=== PATIENT | female | born 1995 | race African-American/Black ===

== ENCOUNTER 2016-03-12 17:48 | Emergency (ER) | payer OTHER ==
[2016-03-12 17:56] VITALS: BP 118/77
== END 2016-03-12 18:30 | disposition left against medical advice (07) ==
LOC: ER 17:48
DX: Z53.21 Procedure and treatment not carried out due to patient leaving prior to being seen by health care provider (principal)

== ENCOUNTER 2016-04-03 18:03 | Emergency (ER) | payer OTHER ==
[2016-04-03 18:38] LABS: Urine Appearance Clear; Urine Bacteria 2+; Urine Bilirubin Negative (NEGATIVE); Urine Blood Negative /ul (NEGATIVE); Urine Color Dark Yellow; Urine Ketone Negative (NEGATIVE); Urine Nitrite Negative (NEGATIVE); Urine Protein Negative (NEGATIVE); Urine RBC TRACE /hpf (0-5); Urine Specific Gravity 1.025 SP.GR. (1.005-1.010); Urine Urobilinogen Normal (NORMAL); Urine WBC None Seen /hpf (0-5)
--- NOTE | 2016-04-03 18:50 | ERNOTE ---
Abdominal HPI - Narrative Date of Service: 04/03/16 - General Chief Complaint: Abdominal Pain Time Seen by Provider: 04/03/16 18:23 Source: patient, RN notes reviewed Exam Limitations: no limitations - Immun/Allergies/Home Medications Immunizatons: IMMUNIZATION HX Immunizations Up to Date No History of Influenza Vaccine No Hx Pneumococcal Vaccination No Allergies/Adverse Reactions: Allergies No Known Allergies Allergy (Verified 09/21/15 12:52) Home Medications: HOME MEDICATIONS NK [No Home Medication] 04/03/16 [Last Taken Unknown] - History of Present Illness Narrative: 21 y/o female ambulatory to the ED for lower abdominal pain that has been occurring for over a month. Her LMP was 02/22/16 and she began having pain when it ended on 02/28/16. She has had 2 positive home tests. Her pain worsens when she eats. She reports nausea but no vomiting, diarrhea or constipation. She has not been taking anything for pain. Prior Abdominal Problems: Present: none Prior Treatment: Absent: recently seen Review of Systems - Review of Systems Constitutional: Absent: recent illness, fever, chills EYE: Present: no symptoms reported ENT: Present: no symptoms reported Respiratory: Absent: shortness of breath, cough Cardiology: Absent: chest pain, palpitations, syncope Gastrointestinal/Abdominal: Present: See HPI Genitourinary: Absent: frequency, dysuria, hematuria Musculoskeletal: Absent: back pain, joint pain Skin: Absent: rash, lesions Neurological: Absent: headache, dizziness/light-headedness Endocrine: Present: no symptoms reported Hematologic/Lymphatic: Present: no symptoms reported Psych: Present: no symptoms reported - Patient's Past Medical History Patient History - Medical: No pertinent hx, Other Patient History - Cardiac/Respiratory: No pertinent hx Patient History - Cancer: No Hx of Cancer Patient History - Surgical Procedures: , Other - Elective Patient History - Other: None LMP (females 10-50): - LMP (Calendar): 02/22/16 - Family History Mother Family History - Cardiac/Respiratory: Hypertension - Social History Living Situations: alone Abuse History: No History of abuse Psych History: No pertinent hx Does anyone smoke in the home?: Yes Smoking Status: Former smoker Have you smoked in the past 12 months: Yes Smoking Stop Date: 03/27/16 Alcohol Use: rarely Drug Use: none - Immunizations Immunizations Up to Date: No Hx Pneumococcal Vaccination: No History of Influenza Vaccine: No Physical Exam - Physical Exam General Appearance: Present: wd/wn, alert, no apparent distress, anxious Neck: Present: normal inspection, nontender, supple, full range of motion Respiratory: Present: no respiratory distress, normal breath sounds, no accessory muscle use, lungs clear Cardiovascular/Chest: Present: regular rate, rhythm, no murmur, normal peripheral pulses Gastrointestinal/Abdominal: Present: normal bowel sounds, nondistended, soft, tenderness - throughout lower abdomen Back Exam: Present: normal inspection, no CVA tenderness Neurological Exam: Present: alert, oriented, normal mood/affect, no motor/ sensory deficits Skin Exam: Present: normal color, warm/dry ED Progress - Results and Orders Patient's Lab Results:: I have reviewed the patient's lab results. - Vital Signs Patient's Vital Signs:: I have reviewed the patient's vital signs. Vital Signs: Vital Signs 04/03/16 18:07 Temperature 35.8 C L Pulse Rate 84 Respiratory 16 Rate Blood Pressure 123/70 O2 Sat by Pulse 100 Oximetry - CT/Ultrasound CT/Ultrasound Narrative: Technique: US OB Limited 1st Trimester Findings: The uterus is identified. It is normal in size and location. It is normal in echogenicity. It demonstrates a gestational sac within the endometrium. Gestational sac measures 1.38 cm compatible with an estimated gestational age of 5 weeks 4 days. Yolk sac is identified. A pole was identified. Primera-rump length measures 5.2 mm which corresponds to an estimated gestational age of 6 weeks 2 days. Heart tones are identified and measure to be 127 bpm. Both ovaries are normal in size, echogenicity and vascularity. No adnexal masses. Minimal fluid within the cul-de-sac likely physiologic. Also noted was a small subchorionic hemorrhage. IMPRESSION: 1. Single viable intrauterine gestation without evidence for ectopic . Electronically signed by Dominic Prince M.D.. - Progress/Reassessment Chief Complaint: Abdominal Pain Progress:: Unchanged Plan - Plan Plan: Discussed US results, patient instructed to establish with an OB for new patient appt. Pain is likely discomfort of early . Discussed taking Tylenol for pain and making sure she is drinking enough water. Departure - Departure Clinical Impression: First trimester Disposition: Home Follow Up Needed Condition: Good Instructions: First Trimester of Additional Instructions: [facility] appointment Referrals: Ayana Nieto MD [Staff Physician] -
[2016-04-03 21:08] VITALS: BP 118/68
== END 2016-04-03 20:44 | disposition home or self-care (01) ==
LOC: ER 18:03
DX: O26.891 Other specified pregnancy related conditions, first trimester (principal); Z3A.01 Less than 8 weeks gestation of pregnancy; R10.9 Unspecified abdominal pain; Z87.891 Personal history of nicotine dependence

== ENCOUNTER 2016-07-30 04:00 | Emergency (ER) | payer OTHER ==
--- NOTE | 2016-07-30 04:29 | ERNOTE ---
Headache ER HPI - Narrative Date of Service: 07/30/16 - General Presenting Symptoms: headache Time Seen by Provider: 07/30/16 04:26 Source: patient - Immun/Allergies/Home Medications Immunizations: IMMUNIZATION HX Immunizations Up to Date Yes History of Influenza Vaccine No Hx Pneumococcal Vaccination No Allergies/Adverse Reactions: Allergies No Known Allergies Allergy (Verified 07/30/16 04:06) Home Medications: HOME MEDICATIONS NK [No Home Medication] 04/03/16 [Last Taken Unknown] - History of Present Illness Narrative: 5 MONTH PT WHO STATES SHE HAS HAD H.A. SINCE 2100 AND JUST TOOK APAP 10 MINS BEFORE CALLING EMS TO BRING HER HERE. NO HX OF TRAUMA. STATES H.A. IS THROBBING TO LEFT FRONTAL AREA. SOME NAUSEA . NO VOMITING. SHE DENIES ANY MED EXCEPT FOR VITS. DENIES JAMISON HX. GENERALLY WELL. IS WITH [facility] WITHOUT ANY COMPLICATIONS. C/O PHOTOPHOBIA Review of Systems - Review of Systems Constitutional: Present: See HPI EYE: Present: see HPI ENT: Present: no symptoms reported Respiratory: Present: no symptoms reported Cardiology: Present: no symptoms reported Gastrointestinal/Abdominal: Present: no symptoms reported Genitourinary: Present: no symptoms reported Musculoskeletal: Present: no symptoms reported Skin: Present: no symptoms reported Neurological: Present: See HPI, headache Hematologic/Lymphatic: Present: no symptoms reported Psych: Present: no symptoms reported All Other Systems: All systems neg except as marked - Patient's Past Medical History Patient History - Medical: No pertinent hx, Other Patient History - Cardiac/Respiratory: No pertinent hx Patient History - Cancer: No Hx of Cancer Patient History - Surgical Procedures: , Other, Orthopedic Patient History - Other: None LMP (females 10-50): 01/2016 LMP (Calendar): 02/22/16 - Family History Mother Family History - Cardiac/Respiratory: Hypertension - Social History Living Situations: alone Abuse History: No History of abuse Psych History: No pertinent hx Does anyone smoke in the home?: Yes Smoking Status: Former smoker Have you smoked in the past 12 months: No Do you dip or chew tobacco: No Alcohol Use: none Drug Use: none - Immunizations Immunizations Up to Date: Yes Hx Pneumococcal Vaccination: No History of Influenza Vaccine: No Physical Exam - Physical Exam General Appearance: Present: wd/wn, alert, moderate distress Eye Exam: Normal inspection: bilateral, PERRL: bilateral, EOMI: bilateral Ears, Nose, Throat: Present: normal ENT inspection, normal except - - RED NASAL MUCOSA BUT NOT CONGESTED. Neck: Present: normal inspection, nontender, supple, full range of motion Respiratory: Present: no respiratory distress, normal breath sounds, no accessory muscle use, chest nontender, lungs clear Cardiovascular/Chest: Present: regular rate, rhythm, no murmur, normal peripheral pulses Gastrointestinal/Abdominal: Present: normal bowel sounds, nontender, distended - GRAVID UTERUS , NON TENDER , TO 5 CM ABOVE UMBILICUS. 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 Absent: facial droop, motor weakness, disoriented to person, disoriented to time, disoriented to place, disoriented to situation DTR: N=norm/NB=norm/brisk/A=abs/DD=dull/dimin/HC=hyperactive: Tricep (R): Normal , Tricep (L): Normal, Knee (R): Normal, Knee (L): Normal Skin Exam: Present: normal color, warm/dry ED Progress - Vital Signs Vital Signs: FHT = 150-160 Vital Signs 07/30/16 07/30/16 04:01 04:15 Temperature 36.6 C Pulse Rate 91 83 Respiratory 18 16 Rate Blood Pressure 93/70 111/72 O2 Sat by Pulse 100 99 Oximetry - Progress/Reassessment Chief Complaint: Headache Progress:: Improved - Transfer of Care Expected Disposition: Discharge Departure Clinical Impression: Headache Qualifiers: Headache type: unspecified Headache chronicity pattern: acute headache Intractability: intractable Qualified Code(s): R51 - Headache - Departure Disposition: Home Follow Up Needed Condition: Fair Instructions: General Headache Without Cause Additional Instructions: REST . OK TO TAKE TYLENOL 650 MG EVERY 6 HOURS IF NEEDED FOR THE HEADACHE IF NOT COMPLETELY GONE OR RETURNS RECHECK WITH YOUR OB OR PRIMARY CARE DOCTOR.
[2016-07-30] MEDS ORDERED: diphenhydrAMINE HCL 50 MG/ML VIAL IM ONE (04:48)
[2016-07-30] MEDS ORDERED: NALBUPHINE HCL 20 MG/ML AMPUL IM ONE (04:50)
[2016-07-30] MEDS ORDERED: diphenhydrAMINE HCL 50 MG/ML VIAL ONE (04:55)
[2016-07-30] MEDS ORDERED: NALBUPHINE HCL 20 MG/ML AMPUL ONE (04:55)
[2016-07-30 06:12] VITALS: BP 92/45
== END 2016-07-30 05:38 | disposition home or self-care (01) ==
LOC: ER 04:00
DX: R51 Headache (principal); Z33.1 Pregnant state, incidental

== ENCOUNTER 2016-08-02 12:58 | Emergency (ER) | payer OTHER ==
[2016-08-02] MEDS ORDERED: NORMAL SALINE 1,000 ML IV ONE (14:29)
[2016-08-02] MEDS ORDERED: diphenhydrAMINE HCL 50 MG/ML VIAL IV ONE ×2 (14:29→16:26)
[2016-08-02] MEDS ORDERED: METOCLOPRAMIDE HCL 5 MG/ML VIAL IV ONE ×2 (14:29→16:26)
[2016-08-02] MEDS ORDERED: diphenhydrAMINE HCL 50 MG/ML VIAL ONE ×2 (14:59→16:27)
[2016-08-02] MEDS ORDERED: METOCLOPRAMIDE HCL 5 MG/ML VIAL ONE ×2 (14:59→16:27)
--- NOTE | 2016-08-02 16:48 | ERNOTE ---
Headache ER HPI - Narrative Date of Service: 08/02/16 - General Presenting Symptoms: "migraine" Time Seen by Provider: 08/02/16 14:24 Source: patient Exam Limitations: no limitations - Immun/Allergies/Home Medications Immunizations: IMMUNIZATION HX Immunizations Up to Date Yes History of Influenza Vaccine Yes Hx Pneumococcal Vaccination No Allergies/Adverse Reactions: Allergies No Known Allergies Allergy (Verified 08/02/16 13:37) Home Medications: HOME MEDICATIONS [id number]/FA/Omega3/Dha/Fish Oil [ Gummies] 1 each PO DAILY 08/02/16 [Last Taken Unknown] - Pain Pain Score: 9 - History of Present Illness Narrative: A 21-year-old female presents to the emergency room for a migraine. She is also 6 months . She states she has taken Tylenol pain has not gotten any better. She states it is light sensitive and sound sensitive. The location is in the frontal area of her forehead Date (Duration): 08/02/16 Timing of Headache: gradual Context Headache: Present: new onset Quality: Present: throbbing Headache frequency: Present: frequent headaches, similar to previous headache Modifying Factors - (Improves): Reports: medication Modifying Factors - (Worsens): Reports: movement, exposure to light Associated Symptoms: Reports: nausea. Denies: fever/chills, vomiting, sweating , fatigue Exacerbated by:: Reports: light, noise, movement Review of Systems - Review of Systems Constitutional: Present: See HPI EYE: Present: no symptoms reported ENT: Present: no symptoms reported Respiratory: Present: no symptoms reported Cardiology: Present: no symptoms reported Gastrointestinal/Abdominal: Present: See HPI, nausea Genitourinary: Present: no symptoms reported Musculoskeletal: Present: no symptoms reported Skin: Present: no symptoms reported Neurological: Present: See HPI, headache Endocrine: Present: no symptoms reported Hematologic/Lymphatic: Present: no symptoms reported Psych: Present: no symptoms reported All Other Systems: All systems neg except as marked - Patient's Past Medical History Patient History - Medical: Migraines Patient History - Cardiac/Respiratory: No pertinent hx Patient History - Cancer: No Hx of Cancer Patient History - Surgical Procedures: , Other, Orthopedic Patient History - Other: None LMP (females 10-50): LMP (Calendar): 02/22/16 - Family History Mother Family History - Cardiac/Respiratory: Hypertension - Social History Living Situations: home Abuse History: No History of abuse Psych History: No pertinent hx Does anyone smoke in the home?: Yes Smoking Status: Never smoker Alcohol Use: none Drug Use: none - Immunizations Immunizations Up to Date: Yes Hx Pneumococcal Vaccination: No History of Influenza Vaccine: Yes Physical Exam - Physical Exam Narrative: patient appears to be uncomfortable and light sensitive at this time. General Appearance: Present: wd/wn, alert, mild distress Eye Exam: Normal inspection: bilateral Ears, Nose, Throat: Present: normal ENT inspection Neck: Present: normal inspection, nontender Respiratory: Present: no respiratory distress, normal breath sounds, no accessory muscle use, chest nontender, lungs clear Cardiovascular/Chest: Present: regular rate, rhythm, no murmur, normal peripheral pulses Peripheral Pulses: N=norm/S=strong/W=weak/B=bound/A=absent: Radial (R): Normal, Radial (L): Normal Gastrointestinal/Abdominal: Present: normal bowel sounds, nontender, nondistended, soft Back Exam: Present: normal inspection, normal range of motion, no CVA tenderness , no vertebral tenderness Extremity Exam: Present: normal inspection, non-tender, normal range of motion, no edema Neurological Exam: Present: alert, oriented, normal mood/affect, no motor/ sensory deficits Skin Exam: Present: normal color, warm/dry Lymphatic Exam: Present: no adenopathy ED Progress - Vital Signs Patient's Vital Signs:: I have reviewed the patient's vital signs. Vital Signs: Vital Signs 08/02/16 08/02/16 08/02/16 12:58 13:32 15:09 Temperature 36.6 C 36.3 C L Pulse Rate 95 81 Respiratory 16 14 Rate Blood Pressure 107/50 161/94 105/68 O2 Sat by Pulse 100 100 Oximetry 08/02/16 16:15 Temperature 36.5 C Pulse Rate 98 Respiratory 14 Rate Blood Pressure 112/58 O2 Sat by Pulse 100 Oximetry - Progress/Reassessment Chief Complaint: Headache Progress:: Improved Plan - Plan Plan: patient is to follow up with her PCP regarding her headaches. She was advised last time to follow up and stated she didnt do it. Departure Clinical Impression: Migraine Qualifiers: Migraine type: unspecified Status migrainosus presence: without status migrainosus Intractability: not intractable Qualified Code(s): G43.909 - Migraine, unspecified, not intractable, without status migrainosus - Departure Disposition: Home self-care Condition: Stable Instructions: Nausea, Adult, Migraine Headache, [id number], General Headache Without Cause, [id number] Additional Instructions: Community previous home medications as directed. Return to the emergency room sinus symptoms return or persist. you should follow up with your primary care in the next few days to discover why you keep having recurrent migraines.
[2016-08-02 16:51] VITALS: BP 110/60
== END 2016-08-02 16:51 | disposition home or self-care (01) ==
LOC: ER 12:58
DX: G43.909 Migraine, unspecified, not intractable, without status migrainosus (principal)

== ENCOUNTER 2016-08-03 18:40 | Emergency (ER) | payer OTHER ==
[2016-08-03] MEDS ORDERED: NORMAL SALINE 1,000 ML IV ONE (19:03)
[2016-08-03] MEDS ORDERED: HYDROCORTISONE SOD SUCCINATE 50 MG/ML VIAL IV ONE (19:19)
[2016-08-03] MEDS ORDERED: PROCHLORPERAZINE EDISYLATE 5 MG/ML VIAL IV ONE (19:20)
[2016-08-03] MEDS ORDERED: HYDROmorphone HCL 1 MG/ML DISP.SYRIN IV ONE (19:20)
--- NOTE | 2016-08-03 19:22 | ERNOTE ---
Headache ER HPI - Narrative Date of Service: 08/03/16 - General Presenting Symptoms: "migraine" Time Seen by Provider: 08/03/16 19:04 Source: patient - Immun/Allergies/Home Medications Immunizations: IMMUNIZATION HX Immunizations Up to Date Yes History of Influenza Vaccine Yes Hx Pneumococcal Vaccination No Allergies/Adverse Reactions: Allergies No Known Allergies Allergy (Verified 08/03/16 18:52) Home Medications: HOME MEDICATIONS [id number]/FA/Omega3/Dha/Fish Oil [ Gummies] 1 each PO DAILY 08/02/16 [Last Taken Unknown] - Pain Pain Score: 10 - History of Present Illness Narrative: 21-year-old female presents to the emergency room for migraine. Patient was here yesterday with a migraine and was also here 2 days before with a migraine. Patient states that she gets some relief but as soon as she wakes up in the morning she has migraine medicines just pounding in her head. Date (Duration): 08/03/16 Timing of Headache: abrupt Quality: Present: throbbing Severity Maximum: Present: severe Severity-Currently: Present: moderate Headache frequency: Present: frequent headaches, similar to previous headache Modifying Factors - (Improves): Reports: medication Modifying Factors - (Worsens): Reports: movement, exposure to light Associated Symptoms: Reports: nausea, vomiting. Denies: fever/chills, weakness , vision changes, confusion, light-headedness, dizziness, loss of consciousness Exacerbated by:: Reports: light, noise, movement Prior Treament: Reports: recently seen, treated by physician, similar symptoms before Review of Systems - Review of Systems Constitutional: Present: See HPI EYE: Present: no symptoms reported ENT: Present: no symptoms reported Respiratory: Present: no symptoms reported Cardiology: Present: no symptoms reported Gastrointestinal/Abdominal: Present: See HPI, nausea Genitourinary: Present: no symptoms reported Musculoskeletal: Present: no symptoms reported Skin: Present: no symptoms reported Neurological: Present: See HPI, headache Endocrine: Present: no symptoms reported Hematologic/Lymphatic: Present: no symptoms reported Psych: Present: no symptoms reported All Other Systems: All systems neg except as marked - Patient's Past Medical History Patient History - Medical: Migraines Patient History - Cardiac/Respiratory: No pertinent hx Patient History - Cancer: No Hx of Cancer Patient History - Surgical Procedures: , Other, Orthopedic Patient History - Other: None LMP (Calendar): 02/22/16 - Family History Mother Family History - Cardiac/Respiratory: Hypertension - Social History Living Situations: home Abuse History: No History of abuse Psych History: No pertinent hx Does anyone smoke in the home?: Yes Smoking Status: Never smoker Patient requests Smoking Cessation Consult: No Initiate information on Smoking Cessation: No Alcohol Use: none Drug Use: none - Immunizations Immunizations Up to Date: Yes Hx Pneumococcal Vaccination: No History of Influenza Vaccine: Yes Physical Exam - Physical Exam Narrative: PATIENT APPEARS TO BE IN MODERAT DISCOMFOT R/T THIS MIGRAINE, SHE IS LIGHT SENSITIVE. General Appearance: Present: wd/wn, alert, mild distress Eye Exam: Normal inspection: bilateral Ears, Nose, Throat: Present: normal ENT inspection, normal pharynx Neck: Present: normal inspection, nontender Respiratory: Present: no respiratory distress, normal breath sounds, no accessory muscle use, chest nontender, lungs clear Cardiovascular/Chest: Present: regular rate, rhythm, no murmur, normal peripheral pulses Gastrointestinal/Abdominal: Present: normal bowel sounds, nontender, soft Back Exam: Present: normal inspection, normal range of motion, no CVA tenderness Extremity Exam: Present: normal inspection Neurological Exam: Present: alert, oriented, normal mood/affect, no motor/ sensory deficits Skin Exam: Present: normal color, warm/dry Lymphatic Exam: Present: no adenopathy ED Progress - Vital Signs Patient's Vital Signs:: I have reviewed the patient's vital signs. Vital Signs: Vital Signs 08/03/16 18:46 Temperature 36.5 C Pulse Rate 88 Respiratory 18 Rate Blood Pressure 122/67 O2 Sat by Pulse 100 Oximetry - Progress/Reassessment Chief Complaint: Headache Progress:: Improved Plan - Plan Plan: After consulting Dr. Kumar she suggested the patient get 100 mg of hydrocortisone 10 mg of Compazine and 1 mg of Dilaudid all IV along with a liter of saline to help with patient's headache. Departure Clinical Impression: Migraine Qualifiers: Migraine type: unspecified Status migrainosus presence: without status migrainosus Intractability: not intractable Qualified Code(s): G43.909 - Migraine, unspecified, not intractable, without status migrainosus - Departure Disposition: Home Follow Up Needed Condition: Stable Instructions: Recurrent Migraine Headache, [id number] Additional Instructions: Continue previous home medications directed. Follow-up with her primary care provider regarding her headaches. Return to emergency room if symptoms return or persist.
[2016-08-03] MEDS ORDERED: HYDROmorphone HCL 1 MG/ML DISP.SYRIN ONE (19:25)
[2016-08-03] MEDS ORDERED: PROCHLORPERAZINE EDISYLATE 5 MG/ML VIAL ONE (19:25)
[2016-08-03] MEDS ORDERED: HYDROCORTISONE SOD SUCCINATE 50 MG/ML VIAL ONE (19:26)
[2016-08-03 20:33] VITALS: BP 116/73
== END 2016-08-03 20:40 | disposition home or self-care (01) ==
LOC: ER 18:40
DX: G43.909 Migraine, unspecified, not intractable, without status migrainosus (principal)

== ENCOUNTER 2016-08-08 10:43 | Emergency (ER) | payer OTHER ==
[2016-08-08] MEDS ORDERED: NALBUPHINE HCL 20 MG/ML AMPUL IV ONE ×2 (11:09→13:08)
[2016-08-08] MEDS ORDERED: diphenhydrAMINE HCL 50 MG/ML VIAL IV ONE ×2 (11:09→13:07)
[2016-08-08] MEDS ORDERED: METOCLOPRAMIDE HCL 5 MG/ML VIAL IV ONE (11:10)
[2016-08-08] MEDS ORDERED: diphenhydrAMINE HCL 50 MG/ML VIAL ONE ×2 (11:25→13:09)
[2016-08-08] MEDS ORDERED: NALBUPHINE HCL 20 MG/ML AMPUL ONE ×2 (11:25→13:09)
[2016-08-08] MEDS ORDERED: METOCLOPRAMIDE HCL 10 MG TABLET ONE (11:25)
[2016-08-08] MEDS ORDERED: METOCLOPRAMIDE HCL 5 MG/ML VIAL ONE (11:26)
[2016-08-08 12:18] LABS: Urine Bilirubin Negative (NEGATIVE); Urine Blood Negative /ul (NEGATIVE); Urine Ketone Negative (NEGATIVE); Urine Nitrite Negative (NEGATIVE); Urine Protein Negative (NEGATIVE); Urine Specific Gravity <=1.005 SP.GR. (1.005-1.010); Urine Urobilinogen Normal (NORMAL)
[2016-08-08 12:28] LABS: Urine Appearance Clear; Urine Bacteria 1+; Urine Color Pale Yellow; Urine RBC None Seen /hpf (0-5); Urine WBC None Seen /hpf (0-5)
[2016-08-08 13:08] VITALS: BP 114/78
--- NOTE | 2016-08-08 13:11 | ERNOTE ---
Headache ER HPI - Narrative Date of Service: 08/08/16 - General Presenting Symptoms: headache Time Seen by Provider: 08/08/16 11:04 Source: patient Exam Limitations: no limitations - Immun/Allergies/Home Medications Immunizations: IMMUNIZATION HX Immunizations Up to Date Yes History of Influenza Vaccine No Hx Pneumococcal Vaccination No Allergies/Adverse Reactions: Allergies No Known Allergies Allergy (Verified 08/08/16 10:56) Home Medications: HOME MEDICATIONS [id number]/FA/Omega3/Dha/Fish Oil [ Gummies] 1 each PO DAILY 08/02/16 [Last Taken Unknown] Butalb/Acetaminophen/Caffeine [Esgic Capsule] 1 each PO Q6H PRN 08/08/16 [Last Taken Unknown] - History of Present Illness Narrative: Pt. comes in with migraine for 24 hours. Pt. has a recent hx of migraines with her current as she is 6 months . Pt. denies any blurred vision double vision or that this is the worst headache she has ever had. Pt. denies any lightheadedness but does state that she has mild nausea and photophobia and phonophobia. Pt. denies any prehospital treatment today but has been in the ER recently multiple times and states taht the last time she was here she got dilaudid and that helped the best. Review of Systems - Review of Systems Constitutional: Present: no symptoms reported. Absent: recent illness, fever, chills, weakness, fatigue, malaise EYE: Present: no symptoms reported. Absent: double vision, vision changes ENT: Present: no symptoms reported Respiratory: Present: no symptoms reported. Absent: shortness of breath, cough , wheezing Cardiology: Present: no symptoms reported. Absent: chest pain, palpitations, edema Gastrointestinal/Abdominal: Present: no symptoms reported. Absent: nausea, vomiting, diarrhea Skin: Present: no symptoms reported. Absent: rash, change in hair/nails Neurological: Present: headache. Absent: dizziness/light-headedness, numbness, tingling All Other Systems: All systems neg except as marked - Patient's Past Medical History Patient History - Medical: Migraines Patient History - Cardiac/Respiratory: No pertinent hx Patient History - Cancer: No Hx of Cancer Patient History - Surgical Procedures: , Other, Orthopedic Patient History - Other: None LMP (females 10-50): LMP (Calendar): 02/22/16 - Family History Mother Family History - Cardiac/Respiratory: Hypertension - Social History Living Situations: home Abuse History: No History of abuse Psych History: No pertinent hx Does anyone smoke in the home?: Yes Smoking Status: Never smoker Alcohol Use: none Drug Use: none - Immunizations Immunizations Up to Date: Yes Hx Pneumococcal Vaccination: No History of Influenza Vaccine: No Physical Exam - Physical Exam General Appearance: Present: wd/wn, alert, no apparent distress Eye Exam: Normal inspection: bilateral, PERRL: bilateral, EOMI: bilateral Ears, Nose, Throat: Present: normal ENT inspection, normal pharynx Neck: Present: normal inspection, nontender. Absent: lymphadenopathy (R), lymphadenopathy (L) Respiratory: Present: no respiratory distress, normal breath sounds, no accessory muscle use, chest nontender, lungs clear Cardiovascular/Chest: Present: regular rate, rhythm, no murmur, normal peripheral pulses Gastrointestinal/Abdominal: Present: normal bowel sounds, nontender, no organomegaly, other - gravid Back Exam: Present: normal inspection, normal range of motion, no CVA tenderness , no vertebral tenderness Extremity Exam: Present: normal inspection, non-tender, normal range of motion, no edema Neurological Exam: Present: alert, oriented, normal mood/affect, no motor/ sensory deficits, stress engineer II-XII nml as tested, normal cerebellar test Skin Exam: Present: normal color, warm/dry. Absent: pallor, skin rash ED Progress - Date and Time Seen: Date and Time: 08/08/16 14:00 Pt. is feeling improved but feel that she could benefit from a neurology consult. Discussed this with pt. and she is in agreement. - Results and Orders Patient's Lab Results:: I have reviewed the patient's lab results. - Vital Signs Patient's Vital Signs:: I have reviewed the patient's vital signs. Vital Signs: Vital Signs 08/08/16 10:51 Temperature 37.1 C Pulse Rate 88 Respiratory 16 Rate Blood Pressure 112/67 O2 Sat by Pulse 100 Oximetry - Progress/Reassessment Chief Complaint: Headache Progress:: Improved Departure Clinical Impression: Migraine Qualifiers: Migraine type: without aura Status migrainosus presence: without status migrainosus Intractability: not intractable Qualified Code(s): G43.009 - Migraine without aura, not intractable, without status migrainosus - Departure Disposition: Home self-care Condition: Good Instructions: Recurrent Migraine Headache, [id number] Additional Instructions: Pleae follow up with your HORSE SHOW JUDGE tomorrow. and make appointment to follow up with neurology in 2-3 days. Referrals: Noah Saldaña MD [Staff Physician] -
== END 2016-08-08 14:30 | disposition home or self-care (01) ==
LOC: ER 10:43
DX: O26.899 Other specified pregnancy related conditions, unspecified trimester (principal); G43.009 Migraine without aura, not intractable, without status migrainosus

== ENCOUNTER 2016-08-08 23:48 | Emergency (ER) | payer OTHER ==
--- NOTE | 2016-08-09 00:02 | ERNOTE ---
Headache ER HPI - Narrative Date of Service: 08/09/16 - General Presenting Symptoms: headache Time Seen by Provider: 08/09/16 00:02 Source: patient, old records - Immun/Allergies/Home Medications Immunizations: IMMUNIZATION HX Immunizations Up to Date Yes History of Influenza Vaccine No Hx Pneumococcal Vaccination No Allergies/Adverse Reactions: Allergies No Known Allergies Allergy (Verified 08/08/16 10:56) Home Medications: HOME MEDICATIONS [id number]/FA/Omega3/Dha/Fish Oil [ Gummies] 1 each PO DAILY 08/02/16 [Last Taken Unknown] Butalb/Acetaminophen/Caffeine [Esgic Capsule] 1 each PO Q6H PRN 08/08/16 [Last Taken Unknown] - History of Present Illness Narrative: RECURRENT COMPLAINT OF HEADACHES. pt is 6 month and about 10 days ago started with throbbing frontal headaches ( today is more to the right frontal), basically continuously, with migraine features of photophobia. She denies any PHX of h.a.'s. No trauma. No N & V. No medical problems. Normal VS's. Only med is vits except this Fri. when her OB Rx'd Egisic which has not really helped. This is her 5th visit since the 6th and the second in less than 24 hrs. Her PE is normal except for the . She was told to get back i to see her OB dr but says she can get an appointment. When here on the she left the impression that she had an appointment for later today but now she says it is not until the . She states she had none of this during her other . Review of Systems - Review of Systems Constitutional: Present: See HPI Neurological: Present: headache Psych: Present: no symptoms reported All Other Systems: All systems neg except as marked - Patient's Past Medical History Patient History - Medical: Migraines Patient History - Cardiac/Respiratory: No pertinent hx Patient History - Cancer: No Hx of Cancer Patient History - Surgical Procedures: , Other, Orthopedic Patient History - Other: None LMP (Calendar): 02/22/16 - Family History Mother Family History - Cardiac/Respiratory: Hypertension - Social History Living Situations: home Abuse History: No History of abuse Psych History: No pertinent hx Does anyone smoke in the home?: Yes Alcohol Use: none Drug Use: none - Immunizations Immunizations Up to Date: Yes Hx Pneumococcal Vaccination: No History of Influenza Vaccine: No Physical Exam - Physical Exam General Appearance: Present: wd/wn, alert, moderate distress Eye Exam: Normal inspection: bilateral, PERRL: bilateral, EOMI: bilateral Ears, Nose, Throat: Present: normal ENT inspection, normal except - - she has swollen turbinates which are very erythematous L>R Neck: Present: normal inspection Respiratory: Present: no respiratory distress, normal breath sounds, no accessory muscle use, lungs clear Cardiovascular/Chest: Present: regular rate, rhythm, no murmur, normal peripheral pulses Gastrointestinal/Abdominal: Present: nontender, soft, other - gravid uterus. Back Exam: Present: no CVA tenderness Neurological Exam: Present: alert, oriented, no motor/sensory deficits, trailer mechanic II- XII nml as tested, normal cerebellar test. Absent: facial droop, motor weakness , disoriented to person, disoriented to time, disoriented to place, disoriented to situation DTR: N=norm/NB=norm/brisk/A=abs/DD=dull/dimin/HC=hyperactive: Tricep (R): Normal , Tricep (L): Normal, Knee (R): Normal, Knee (L): Normal Skin Exam: Present: normal color, warm/dry ED Progress - Vital Signs Vital Signs: Vital Signs 08/08/16 23:53 Temperature 37.4 C Pulse Rate 98 Respiratory 20 Rate Blood Pressure 108/72 O2 Sat by Pulse 99 Oximetry - CT/Ultrasound CT/Ultrasound Narrative: PER [facility]. HEAD CT = NORMAL. - Progress/Reassessment Chief Complaint: Headache Progress:: Improved - Transfer of Care Expected Disposition: Discharge Plan - Plan Plan: D/W DR AMADOR, ENCODING CLERK MOJGAN, WHO HAD NO OTHER SUGGESTIONS BUT DID SAY A HEAD CT , WHICH THE PT. HAS NEVER HAD, WOULD NOT BE A PROBLEM AT 6 MONTHS OF . Departure Clinical Impression: Recurrent headache - Departure Disposition: Home Follow Up Needed Condition: Fair Instructions: Recurrent Migraine Headache, [id number] Additional Instructions: YOU NEED TO FOLLOW UP WITH OB LATER TODAY AND YOU MAY NEED A NEUROLOGY REFERRAL FROM THEM. I WILL LEAVE A MESSAGE WITH THE CLINIC THAT YOU WILL BE CALLING. Referrals: Ayana Nieto MD [Staff Physician] -
[2016-08-09] MEDS ORDERED: PROCHLORPERAZINE EDISYLATE 5 MG/ML VIAL IV ONE (00:21)
[2016-08-09] MEDS ORDERED: diphenhydrAMINE HCL 50 MG/ML VIAL IV ONE (00:21)
[2016-08-09] MEDS ORDERED: diphenhydrAMINE HCL 50 MG/ML VIAL ONE (00:23)
[2016-08-09] MEDS ORDERED: PROCHLORPERAZINE EDISYLATE 5 MG/ML VIAL ONE (00:24)
[2016-08-09 01:32] VITALS: BP 102/66
== END 2016-08-09 01:30 | disposition home or self-care (01) ==
LOC: ER 23:48
DX: R51 Headache (principal); Z33.1 Pregnant state, incidental; Z3A.26 26 weeks gestation of pregnancy

== ENCOUNTER 2016-11-21 05:04 | Inpatient (IN) | payer OTHER ==
[2016-11-21] MEDS ORDERED: ceFAZolin SODIUM/DEXTROSE,ISO 2 GM/50 ML BAG IV ONE (05:36)
[2016-11-21] MEDS ORDERED: RINGER'S SOLUTION,LACTATED 1,000 ML IV PRN ×2 (05:36→06:33)
[2016-11-21] MEDS ORDERED: OXYTOCIN 20 UNITS in RINGER'S SOLUTION,LACTATED 1,000 ML IV ONE (05:36)
[2016-11-21 05:59] LABS: Hematocrit 30.8 % (37.0-47.0); Hemoglobin 9.8 gm/dL (12.5-16.0); Mean Cell Volume 76.4 fl (78-100); Mean Corpuscular Hemoglobin 24.3 pg (27-31); Mean Corpuscular Hgb Conc 31.8 g/dl (32-36); Mean Platelet Volume 11.3 fl (6.0-9.5); Neutrophil # 4.3 K/mm3 (1.3-6.0); Neutrophil % 58.6 % (42-75.0); Platelet Count 137 K/mm3 (150-450); Red Blood Count 4.03 M/mm3 (4.2-5.4); Red Cell Distribution Width 20.3 % (11.5-14.0); White Blood Count 7.3 K/mm3 (4.0-10.5)
[2016-11-21 06:26] LABS: Cocaine Ur Negative (NEGATIVE); Urine Barbiturate Negative (NEGATIVE); Urine Benzodiazepines Negative (NEGATIVE); Urine PCP Negative (NEGATIVE); Urine THC Negative (NEGATIVE)
[2016-11-21 06:28] LABS: Urine Opiates Positive (NEGATIVE)
[2016-11-21] MEDS ORDERED: RINGER'S SOLUTION,LACTATED 1,000 ML IV ONE ×3 (07:30→10:09)
[2016-11-21] MEDS ORDERED: BISACODYL 10 MG SUPP.RECT RC PRN (10:09)
[2016-11-21] MEDS ORDERED: diphenhydrAMINE HCL 25 MG CAPSULE PO PRN (10:09)
[2016-11-21] MEDS ORDERED: PROMETHAZINE HCL 12.5 MG in DEXTROSE 5 % IN WATER 50 ML IV PRN ×2 (10:09)
[2016-11-21] MEDS ORDERED: ONDANSETRON HCL/PF 2 MG/ML VIAL IV PRN (10:09)
[2016-11-21] MEDS ORDERED: SENNOSIDES 8.6 MG TABLET PO PRN (10:09)
--- NOTE | 2016-11-21 10:19 | OR ---
Anesthesia Procedure Note - Anesthesia Procedure Note Narrative: Vital Signs - Last Taken Temp 37.4 C 11/21/16 10:07 Pulse 103 H 11/21/16 10:10 Resp 26 H 11/21/16 10:10 BP 138/81 11/21/16 10:10 Pulse Ox 100 11/21/16 10:10 O2 Oxygen Delivery Method Nasal Cannula 11/21/16 10:15 ANESTHESIA PROCEDURE NOTE Date of procedure: 11/21/2016. Time of procedure: 10:00. Performed by: Antwon Cohn CRNA Credit Union Examiner: Cinthia Domínguez RN . Preprocedure diagnosis: Repeat section. Desire for postoperative analgesia.. Post procedure diagnosis: Same. Procedure: Bilateral ultrasound-guided TAP Block Indications: Postoperative analgesia status post surgery and section. Findings: Ultrasound-guided bilateral tap block performed. Right lateral abdominal wall prepped with ChloraPrep. A 22-gauge 2 inch Stimuplex regional block needle was inserted under ultrasound guidance and tip of needle was placed in the fascial layer between the internal oblique muscle and transabdominal S muscle. 20 mL of 0.25% Marcaine with epinephrine 1 200,000 was injected under ultrasound guidance. Regional block needle was removed intact. Procedure was repeated on the patient's left side. EBL: Minimal. Fluids: N/A. Specimen: N/A. Post procedure condition: The patient tolerated the procedure well. No complications were noted. Thank you for this consultation Antwon Cohn CRNA
[2016-11-21] MEDS ORDERED: HYDROmorphone HCL 2 MG/ML VIAL IV PRN (10:52)
--- NOTE | 2016-11-21 11:10 | OR ---
Operative Report - Dictated Report Narrative: DATE OF PROCEDURE: 11/21/2016 PROCEDURE: 1. Repeat low transverse section ANESTHESIA: Spinal. PREOPERATIVE DIAGNOSES: 1. Intrauterine at 39 0/7 weeks 2. Previous section for failure to progress. POSTOPERATIVE DIAGNOSES: 1. Intrauterine at 39 0/7 weeks 2. Previous section for failure to progress. SURGEON: Ayana Nieto M.D. DAMAGE CUTTER: Amy FINDINGS: 1. Female in cephalic presentation. Clear amniotic fluid. Weight 3552 g , 9/9, Time of delivery: 0822. 2. Dense adhesions noted under the fascia, between the fascia and bladder and between the bladder and the lower uterine segment. 3. Large fibroid uterus with a 1.5 cm fundal fibroid. Bilateral ovaries and tubes appeared normal. SPECIMENS: none DRAIN: Loyola to gravity. URINE OUTPUT: 650 ml. BLOOD LOSS: 800 ml. IV FLUIDS: 2200 ml COMPLICATIONS: None. Description of Operative Procedure: The patient consented prior to the operation and was taken to the operating room. Spinal anesthesia was performed without complications. The patient was then placed in the dorsal supine position with leftward tilt. Sequential compression device was placed on the lower extremities. A Loyola catheter was inserted into the bladder. Two grams of Ancef was given at the beginning of spinal anesthesia. The abdomen was prepped with Chloraprep and draped in the usual sterile fashion. A time-out procedure was conducted to confirm the correct patient for the correct procedure. Anesthesia was tested and it was adequate. Her previous Pfannenstiel incison was too low, so a new Pfannenstiel skin incision was marked 2 cm above previous incision and then made with a scalpel. The incision was carried through the subcutaneous layer to the fascia. The fascia was nicked at the midline and extended bilaterally with Pendleton scissors. The upper edge of the fascia incision was grasped with two Obi clamps, elevated and dissected off from the rectus muscles. The Obi clamps were repositioned to the lower edge of the fascia incision, which was tented up and dissected off from the rectus muscles. Dense adhesions were lysed carefully. The rectus muscles were elevated with Allis clamps and in the midline with sharp dissection using the scalpel. The peritoneum was entered sharply with the scalpel. The peritoneal incision was extended superiorly and inferiorly with good visualization of the bladder. The bladder was adherent to the fascia. Careful dissection was performed here. A bladder blade was inserted. The bladder was also adherent to the lower uterine segment. Attempt to dissect the bladder from the lower uterine segment was not possible. So a lower uterine segment incision was made 1.5 cm above the bladder adhesion in a transverse fashion and the incision was extended laterally by stretching. The amniotic sac was ruptured with clear fluid, The bladder blade was removed. The baby was in cephalic presentation. The head was elevated through the incision. Fundal pressure was applied and the baby's head appeared too big to deliver through the incision. So a flat Kiwi vacuum was applied to the traction point, pumped to green and pulled along with fundal pressure. There were 4 pop-offs partly due to baby with a lot of hair. The baby's head was delivered and the rest of the baby delivered without difficulty. Baby cried immediately after . The cord was clamped and cut. The was handed off to the nurse/ ped in attendance. Cord blood was obtained. The placenta was removed manually. The uterus was exteriorized, and cleared off clots and membrane. The uterine incision was closed with 0 vicryl in a running lock fashion. A second imbricating layer was placed with 2-0 Vicryl. Good hemostasis was obtained. The posterior cul-de-sac was cleared off clots and fluid. The uterus was returned to the abdomen. The gutters were cleared off blood clots and fluid. A piece of Surgicel was placed over the bladder edge due to oozing. The peritoneum was closed with 2-0 Vicryl. The rectus muscle was inspected and hemostatic. The rectus muscles were brought together in the midline with interrupted 0 Vicryl. The fascia was reapproximated with #1 Vicryl in running fashion. The subcutaneous layer was irrigated with saline. The skin was closed with 3-0 Monocryl suture in a subcuticular fashion. Benzoin was applied to the skin incision edge. The incision was covered with Steri strips. Telfa, two ABDs were placed over incision with pressure dressing tape. The patient tolerated the procedure well. Sponge, lap, needle and instrument counts were correct. The patient was taken to the recovery room in stable condition. Ayana Nieto MD History for MU Definition: * The number of deliveries resulting in a live the patient experienced prior to current hospitalization * The previous delivery of live twins or any live multiple gestation is considered one live event. *If primagravida or nulliparous is documented select zero for the number of previous live births. Live Events: 1 History for MU Definition: * The number of deliveries resulting in a live the patient experienced prior to current hospitalization * The previous delivery of live twins or any live multiple gestation is considered one live event. *If primagravida or nulliparous is documented select zero for the number of previous live births. Live Events: 1
[2016-11-21] MEDS: oxyCODONE HCL/ACETAMINOPHEN 1 TAB TABLET PO PRN ×3 (12:58→19:49)
[2016-11-21] MEDS: IBUPROFEN 800 MG TABLET PO PRN ×2 (15:55→22:01)
[2016-11-21] MEDS: DOCUSATE SODIUM 100 MG CAPSULE PO SCH (22:01)
[2016-11-22] MEDS: oxyCODONE HCL/ACETAMINOPHEN 1 TAB TABLET PO PRN ×5 (01:12→21:44)
[2016-11-22] MEDS: IBUPROFEN 800 MG TABLET PO PRN ×3 (05:19→21:43)
[2016-11-22] MEDS: DOCUSATE SODIUM 100 MG CAPSULE PO SCH ×2 (09:18→20:13)
--- NOTE | 2016-11-22 14:40 | PN ---
Subjective - Date and Time Seen Date: 11/22/16 Subjective Narrative: Post op day 1, s/p repeat c/s pain controlled with oral medications. lochia light to moderate. bottle feeding. no other complaints. voided well. ambulating and tolerating diet. Objective - Vitals Vitals: Last Vital Signs Temp 36.8 C 11/22/16 14:14 Pulse 100 11/22/16 14:14 Resp 16 11/22/16 14:14 BP 114/72 11/22/16 14:14 Pulse Ox 99 11/22/16 14:14 - Exam Constitutional: Present: Alert, Oriented x3, Cooperative Respiratory: Present: no respiratory distress Cardiovascular/Chest: Present: normal peripheral pulses Abdomen: Present: soft, nondistended, other - fundus at umbilicus. Incision dry and clean with steri strips intact. Extremity: Present: normal range of motion, no pedal edema, no calf tenderness Skin Exam: Present: normal color, warm/dry, no cyanosis Eye contact: Present: cooperative, good eye contact, normal speech Cauti Physician Documentation - Urinary Catheter Management Urethral (Loyola) Date of Insertion: 11/21/16 Time of Insertion: 07:45 Date of Removal: 11/21/16 Time of Removal: 20:00 Assessment/Plan Plan Narrative: A: post op day 1, s/p repeat c/s stable and well. Plan: routine post op care. started on iron for anemia. ambulation encouraged. Ayana Nieto MD
[2016-11-22] MEDS: FERROUS SULFATE 325 MG TABLET PO SCH ×2 (15:14→20:13)
[2016-11-22] MEDS: SIMETHICONE 80 MG TAB.CHEW PO PRN (15:19)
[2016-11-23] MEDS: IBUPROFEN 800 MG TABLET PO PRN ×2 (06:08→22:43)
[2016-11-23] MEDS: oxyCODONE HCL/ACETAMINOPHEN 1 TAB TABLET PO PRN ×5 (06:08→22:43)
[2016-11-23] MEDS: DOCUSATE SODIUM 100 MG CAPSULE PO SCH ×2 (09:27→21:38)
[2016-11-23] MEDS: FERROUS SULFATE 325 MG TABLET PO SCH ×2 (09:27→21:38)
[2016-11-23] MEDS: SIMETHICONE 80 MG TAB.CHEW PO PRN ×2 (14:08→18:23)
--- NOTE | 2016-11-23 17:16 | PN ---
Subjective - Date and Time Seen Date: 11/23/16 Subjective Narrative: post op day 2, s/p repeat c/s complains of incisional pain, but controlled with oral pain meds. lochia minimal. no other complaints. bottle feeding. eating and ambulating well. + flatus, no BM. Objective - Vitals Vitals: Last Vital Signs Temp 36.2 C L 11/23/16 13:08 Pulse 93 11/23/16 13:08 Resp 16 11/23/16 13:08 BP 123/57 11/23/16 13:08 Pulse Ox 99 11/23/16 08:23 - Exam Constitutional: Present: Alert, Oriented x3, Cooperative Respiratory: Present: no respiratory distress Cardiovascular/Chest: Present: normal peripheral pulses Abdomen: Present: soft, nondistended, other - fundus firm at the umbilicus. incision dry and clean with steri strips. Extremity: Present: normal range of motion, no pedal edema, no calf tenderness Skin Exam: Present: normal color, warm/dry, no cyanosis Appearance: Present: appropriate appearance Eye contact: Present: cooperative, good eye contact, normal speech Cauti Physician Documentation - Urinary Catheter Management Urethral (Loyola) Date of Insertion: 11/21/16 Time of Insertion: 07:45 Date of Removal: 11/21/16 Time of Removal: 20:00 Assessment/Plan Plan Narrative: A: POD#2, s/p repeat c/s stable and well. Plan: routine post op care. ambulation encouraged. Ayana Nieto MD
[2016-11-24] MEDS: oxyCODONE HCL/ACETAMINOPHEN 1 TAB TABLET PO PRN ×3 (05:15→08:42)
[2016-11-24] MEDS: IBUPROFEN 800 MG TABLET PO PRN (05:15)
[2016-11-24 07:32] VITALS: BP 114/57
[2016-11-24 07:35] LABS: Mean Cell Volume 78.8 fl (78-100); Mean Corpuscular Hemoglobin 24.3 pg (27-31); Mean Corpuscular Hgb Conc 30.9 g/dl (32-36); Mean Platelet Volume 9.8 fl (6.0-9.5); Neutrophil # 5.7 K/mm3 (1.3-6.0); Neutrophil % 66.8 % (42-75.0); Platelet Count 168 K/mm3 (150-450); Red Blood Count 2.92 M/mm3 (4.2-5.4); White Blood Count 8.6 K/mm3 (4.0-10.5)
[2016-11-24 07:38] LABS: Hemoglobin 7.1 gm/dL (12.5-16.0)
[2016-11-24] MEDS: FERROUS SULFATE 325 MG TABLET PO SCH (08:39)
[2016-11-24] MEDS: DOCUSATE SODIUM 100 MG CAPSULE PO SCH (08:39)
[2016-11-24] MEDS ORDERED: MAGNESIUM HYDROXIDE 30 ML UDC PO ONE (09:28)
--- NOTE | 2016-11-24 11:25 | PN ---
Subjective - Date and Time Seen Date: 11/24/16 Subjective Narrative: post op day 3, s/p repeat c/s was notified this morning that the patient's fundus appeared 4 fingers above her umbilicus. patient has not have any major complaints other than pain. has been taking oral pain med percocet around the clock. has not have a bowel movement for 4 days. anemia on iron. lochia minimal. bottle feeding. ambulating and tolerating diet well. passed flatus. Objective - Vitals Vitals: Last Vital Signs Temp 36.6 C 11/24/16 07:29 Pulse 85 11/24/16 07:29 Resp 18 11/24/16 07:29 BP 114/57 11/24/16 07:29 Pulse Ox 99 11/24/16 07:29 - Abnormal Lab Findings Abnormal Lab Findings: Abnormal Lab Results 11/24/16 Range/Units 07:30 RBC 2.92 L (4.2-5.4) M/mm3 Hgb 7.1 L* D (12.5-16.0) gm/dL Hct 23.0 L* D (37.0-47.0) % MCH 24.3 L (27-31) pg MCHC 30.9 L (32-36) g/dl RDW 21.0 H (11.5-14.0) % MPV 9.8 H (6.0-9.5) fl Immature Gran % (Auto) 2.50 H (0.001-0.429) % Immature Gran # (Auto) 0.21 H (0.000-0.0310) K/mm3 - Exam Constitutional: Present: Alert, Oriented x3, Cooperative Respiratory: Present: no respiratory distress Cardiovascular/Chest: Present: normal peripheral pulses Abdomen: Present: soft, nondistended - very loose abdominal wall. umbilicus easily moved over uterine fundus. uterus was large due to fibroid, but now at or may 1 finger above umbilicus. abdomen mildly tender. bowel sound weak, but present, no hyperactive bowel sound. incision dry and clean, other Extremity: Present: normal range of motion, no pedal edema, no calf tenderness Skin Exam: Present: normal color, warm/dry, no cyanosis Appearance: Present: appropriate appearance Eye contact: Present: cooperative, good eye contact, normal speech Cauti Physician Documentation - Urinary Catheter Management Urethral (Loyola) Date of Insertion: 11/21/16 Time of Insertion: 07:45 Date of Removal: 11/21/16 Time of Removal: 20:00 Assessment/Plan Plan Narrative: A: post op day 3, s/p repeat c/s with anemia, constipation and a large uterus. Plan: u/s ordered this morning, formal report pending, not significant blood clot in uterus or retained product on images. cbc showed anemia. milk of magnesium given to have a bowel movement. discussed to avoid constipation by limiting pain meds, increased activity, water hydration, vegetable, fruit, colace/senokot/miralax etc. will discharge home later if stable. Ayana Nieto MD
[2016-11-24 11:43] LABS: Hematocrit 24.9 % (37.0-47.0); Mean Cell Volume 78.1 fl (78-100); Mean Corpuscular Hemoglobin 24.1 pg (27-31); Mean Corpuscular Hgb Conc 30.9 g/dl (32-36); Neutrophil # 5.8 K/mm3 (1.3-6.0); Neutrophil % 64.7 % (42-75.0); Platelet Count 195 K/mm3 (150-450); Red Blood Count 3.19 M/mm3 (4.2-5.4); Red Cell Distribution Width 20.8 % (11.5-14.0); White Blood Count 8.9 K/mm3 (4.0-10.5)
[2016-11-24 11:50] LABS: Hemoglobin 7.7 gm/dL (12.5-16.0)
== END 2016-11-24 14:59 | disposition home or self-care (01) | DRG 766 ==
LOC: OB 05:04
PROVIDERS: ADMIT Obstetrics & Gynecology; ATTEND Obstetrics & Gynecology
PROC: 4A1HXCZ Monitoring of Products of Conception, Cardiac Rate, External Approach (ICD-10-PCS; 2016-11-21)
PROC: 10D00Z1 Extraction of Products of Conception, Low, Open Approach (ICD-10-PCS; principal; 2016-11-21 08:00)
DX: O34.211 Maternal care for low transverse scar from previous cesarean delivery (principal); Z3A.39 39 weeks gestation of pregnancy; Z37.0 Single live birth